=== PATIENT | female | born 1975 | race Caucasian/White ===

== ENCOUNTER 2016-10-21 13:14 | Emergency (ER) | payer BC ==
[~2016-10-21] VITALS: Ht 157.5 cm; Wt 97.5 kg
[2016-10-21 13:14] VITALS: BP 126/83
[~2016-10-21 13:14] MED LIST: PHEN-410 PO; ZOLP10TA2 PO
== END 2016-10-21 13:55 | disposition home or self-care (01) ==
LOC: ER 13:16
DX: L03.012 Cellulitis of left finger (principal); G40.909 Epilepsy, unspecified, not intractable, without status epilepticus
CPT/HCPCS: 99281; A4606; Z7610; Z7502

== ENCOUNTER 2017-05-09 15:06 | Emergency (ER) | payer BC ==
[~2017-05-09] VITALS: Ht 154.9 cm; Wt 99.8 kg
[2017-05-09 15:58] LABS: CALCIUM, SERUM 7.8 mg/dL (8.5-10.1); CARBON DIOXIDE 25 mmol/L (21-32); CHLORIDE 105 mmol/L (98-107); CREATININE 0.7 mg/dL (0.6-1.3); GLUCOSE 94 mg/dL (74-106); SODIUM SERUM 138 mmol/L (136-145); UREA NITROGEN, BLOOD 11 mg/dL (7-18)
[2017-05-09 16:02] LABS: INR 0.97 (0.87-1.13); PROTHROMBIN TIME 10.1 SECS (9.5-12.7)
[2017-05-09 16:04] LABS: ALANINE AMINOTRANSFERASE 19 U/L (12-78); ALBUMIN 2.9 g/dL (3.4-5.0); ALKALINE PHOSPHATASE 89 U/L (46-116); ASPARTATE AMINOTRANSFERASE 15 U/L (15-37); BILIRUBIN,TOTAL 0.1 mg/dL (0.2-1.0); TOTAL PROTEIN, SERUM 5.5 g/dL (6.4-8.2)
[2017-05-09 16:06] LABS: TROPONIN I < 0.017 ng/mL (0.00-0.056)
[2017-05-09 16:07] LABS: BASOPHILS % (AUTO) 0.4 % (0.0-2.0); EOSINOPHILS # (AUTO) 0.2 /CMM (0.0-0.7); EOSINOPHILS % (AUTO) 1.6 % (0.0-6.0); HEMATOCRIT 39 % (33-45); HEMOGLOBIN 12.7 g/dL (11.5-14.8); LYMPHOCYTES # (AUTO) 2.8 /CMM (0.8-4.8); LYMPHOCYTES % (AUTO) 23.4 % (20.0-44.0); MEAN CORPUSCULAR HEMOGLOBIN 28 PG (26.0-33.0); MEAN CORPUSCULAR HGB CONC 33 g/dl (31.0-36.0); MEAN CORPUSCULAR VOLUME 87 fL (82-100); MONOCYTES # (AUTO) 0.6 /CMM (0.1-1.30); MONOCYTES % (AUTO) 4.8 % (2.0-12.0); NEUTROPHILS # (AUTO) 8.5 /CMM (1.8-8.9); NEUTROPHILS % (AUTO) 69.8 % (43.0-81.0); PLATELET COUNT (AUTO) 295 /CMM (150-450); RDW COEFFICIENT OF VARIATION 13.7 (11.5-15.0); RED BLOOD CELL COUNT(AUTO) 4.51 MIL/uL (4.0-5.2); WHITE BLOOD COUNT (AUTO) 12.1 K/uL (4.3-11.0)
[2017-05-09 17:23] LABS: APPEARANCE,URINE Clear (CLEAR); BILIRUBIN,URINE Negative (NEGATIVE); BLOOD, URINE Negative Ery/uL (NEGATIVE); COLOR,URINE Yellow (YELLOW); KETONES,URINE Negative (NEGATIVE); LEUKOCYTE ESTERASE ,URINE Negative (NEGATIVE); NITRITE, URINE Negative (NEGATIVE); PROTEIN,URINE Negative (NEGATIVE); UGLUCOSE Negative (NEGATIVE); UROBILINOGEN,URINE 0.2 EU/dL (0.2)
[2017-05-09] MEDS ORDERED: METO25TA3 PO (18:32)
[2017-05-09] MEDS ORDERED: PHEN100C4 PO (18:32)
[2017-05-09] MEDS ORDERED: ASPI81TA2 PO (18:32)
[2017-05-09 18:55] VITALS: BP 132/66
== END 2017-05-09 18:56 | disposition home or self-care (01) ==
LOC: ER 15:07
DX: R07.89 Other chest pain (principal); I25.2 Old myocardial infarction; M32.9 Systemic lupus erythematosus, unspecified; M79.7 Fibromyalgia; Z88.8 Allergy status to other drugs, medicaments and biological substances
CPT/HCPCS: 36415; 71010; 71275; 80048; 80076; 80305; 81001; 84484; 84702; 85025; 85730; 93005; 96374; 96375; 99285; A4606; J1885; J2060; J2405; J7030; Q9967; Z7610; 81000-TC

== ENCOUNTER 2018-10-14 14:14 | Emergency (ER) | payer BC ==
[~2018-10-14] VITALS: Ht 152.4 cm; Wt 111.1 kg
[~2018-10-14 14:14] MED LIST changes: +ASPI-1169 PO; +METO25TA3 PO; -PHEN-410 PO; +PHEN100C4 PO; -ZOLP10TA2 PO
--- NOTE | 2018-10-14 14:20 | NUR ---
DORIS FROM HOME 42 YEAR OLD FEMALE FOR WITNESSED SEIZURE. -ORAL TRAUMA, BREATHING EVEN AND UNLABORED WITH NO DISTRESS NOTED. SKIN WARM TO TOUCH AND INTACT. AWAITING TO BE SEEN BY
[2018-10-14] MEDS ORDERED: LORAZEPAM 1 MG TABLET ONE (14:57)
[2018-10-14] MEDS ORDERED: LEVETIRACETAM (250 MG) 250 MG TABLET PO ONE (14:57)
[2018-10-14] MEDS: LEVETIRACETAM (250 MG) 250 MG TABLET PO ONE (14:59)
[2018-10-14] MEDS: LORAZEPAM 1 MG TABLET PO ONE (14:59)
[2018-10-14 15:19] LABS: BASOPHILS % (AUTO) 0.4 % (0.0-2.0); EOSINOPHILS % (AUTO) 0.5 % (0.0-6.0); HEMATOCRIT 41 % (33-45); HEMOGLOBIN 13.6 g/dL (11.5-14.8); LYMPHOCYTES # (AUTO) 1.6 /CMM (0.8-4.8); MEAN CORPUSCULAR HGB CONC 33 g/dl (31.0-36.0); MEAN CORPUSCULAR VOLUME 88 fL (82-100); MONOCYTES # (AUTO) 0.6 /CMM (0.1-1.30); NEUTROPHILS # (AUTO) 8.5 /CMM (1.8-8.9); NEUTROPHILS % (AUTO) 78.1 % (43.0-81.0); PLATELET COUNT (AUTO) 269 /CMM (150-450); RED BLOOD CELL COUNT(AUTO) 4.69 MIL/uL (4.0-5.2); WHITE BLOOD COUNT (AUTO) 10.9 K/uL (4.3-11.0)
[2018-10-14 16:05] LABS: CALCIUM, SERUM 8.1 mg/dL (8.5-10.1)
[2018-10-14] MEDS ORDERED: ACETAMINOPHEN ES 500 MG TABLET ONE (16:30)
[2018-10-14] MEDS: ACETAMINOPHEN ES 500 MG TABLET PO ONE (16:31)
[2018-10-14 17:29] VITALS: BP 127/72
--- NOTE | 2018-10-14 17:30 | NUR ---
Patient discharged to home in stable condition. Written and verbal after care instructions given. Patient verbalizes understanding of instruction.
--- NOTE | 2018-10-14 17:31 | NUR ---
IV removed. Catheter intact and site benign. Pressure and 4x4 applied to site. No bleeding noted.
== END 2018-10-14 17:31 | disposition home or self-care (01) ==
LOC: ER 14:21
DX: G40.909 Epilepsy, unspecified, not intractable, without status epilepticus (principal); I10 Essential (primary) hypertension; M79.7 Fibromyalgia; F19.10 Other psychoactive substance abuse, uncomplicated; F10.10 Alcohol abuse, uncomplicated; Y90.9 Presence of alcohol in blood, level not specified; Z91.14 Patient's other noncompliance with medication regimen; Z79.82 Long term (current) use of aspirin; Z88.8 Allergy status to other drugs, medicaments and biological substances
CPT/HCPCS: 36415; 80048; 84703; 85025; 99284; A4606

== ENCOUNTER 2021-02-26 19:10 | Emergency (ER) | payer BC ==
[~2021-02-26] VITALS: Ht 152.4 cm; Wt 107.5 kg
[2021-02-26 19:15] VITALS: BP 164/100
[2021-02-26] MEDS ORDERED: IBUPROFEN 600 MG TABLET PO ONE (20:00)
[2021-02-26] MEDS ORDERED: HYDROCODONE/APAP 5/325MG TABLET PO ONE (20:00)
[2021-02-26] MEDS ORDERED: HYDROCODONE/APAP 5/325MG TABLET ONE (20:05)
[2021-02-26] MEDS ORDERED: IBUPROFEN 600 MG TABLET ONE (20:05)
[2021-02-26] MEDS ORDERED: NAPR-1143 PO (20:12)
--- NOTE | 2021-02-26 21:04 | NUR ---
PT OK TO DISCHARGE PER YVES KURTZ. Patient discharged to home in stable condition. Written and verbal after care instructions given. Patient verbalizes understanding of instruction.Patient is awake and alert to self, day, and place.
== END 2021-02-26 21:05 | disposition home or self-care (01) ==
LOC: ER 19:13
DX: S93.492A Sprain of other ligament of left ankle, initial encounter (principal); I10 Essential (primary) hypertension; M79.7 Fibromyalgia; Z88.8 Allergy status to other drugs, medicaments and biological substances; Z79.82 Long term (current) use of aspirin; Z79.899 Other long term (current) drug therapy; X50.1XXA Overexertion from prolonged static or awkward postures, initial encounter; Y93.89 Activity, other specified; Y92.89 Other specified places as the place of occurrence of the external cause; Y99.8 Other external cause status
CPT/HCPCS: 73610-TC; 73630-TC

== ENCOUNTER 2022-04-30 19:02 | Emergency (ER) | payer BC ==
[~2022-04-30] VITALS: Ht 152.4 cm; Wt 107.5 kg
[~2022-04-30 19:02] MED LIST changes: +NAPR-1143 PO
[2022-04-30 19:15] VITALS: BP 133/104
[2022-04-30] MEDS ORDERED: TRIA15CR2 TP (19:29)
--- NOTE | 2022-04-30 19:30 | NUR ---
Patient discharged to home in stable condition. Written and verbal after care instructions given. Patient verbalizes understanding of instruction. pT ambulatory with a steady gait
== END 2022-04-30 19:30 | disposition home or self-care (01) ==
LOC: ER 19:09
DX: S30.860A Insect bite (nonvenomous) of lower back and pelvis, initial encounter (principal); S70.362A Insect bite (nonvenomous), left thigh, initial encounter; I10 Essential (primary) hypertension; M79.7 Fibromyalgia; Z88.8 Allergy status to other drugs, medicaments and biological substances; Z79.899 Other long term (current) drug therapy; W57.XXXA Bitten or stung by nonvenomous insect and other nonvenomous arthropods, initial encounter; Y93.89 Activity, other specified; Y92.89 Other specified places as the place of occurrence of the external cause; Y99.8 Other external cause status

== ENCOUNTER → 2022-05-21 | Emergency (ER) | payer BC ==
[~2022-05-21] VITALS: Ht 154.9 cm; Wt 97.5 kg
[~2022-05-21] MED LIST changes: +RAMIPRIL 1.25 MG CAPSULE PO ONE; +TRIA15CR2 TP
--- NOTE | 2022-05-21 04:00 | NUR ---
DORIS 89 FROM HOME FOR "WOKE UP AT 0200 WITH SOB". SATTING AT 98% ON RA. PLACED ON MONITOR AND ALL V/S WNL.
--- NOTE | 2022-05-21 04:24 | NUR ---
20G IV ESTABLISHED AT [facility]. BLOOD DRAWN AND SENT TO LAB
--- NOTE | 2022-05-21 04:30 | NUR ---
EMT AT BEDSIDE FOR EKG
[2022-05-21 04:33] LABS: BASOPHILS # (AUTO) 0.1 K/uL (0.0-0.2); BASOPHILS % (AUTO) 0.7 % (0.0-2.0); EOSINOPHILS % (AUTO) 3.6 % (0.0-6.0); HEMATOCRIT 42 % (33-45); HEMOGLOBIN 14.1 g/dL (11.5-14.8); LYMPHOCYTES # (AUTO) 2.6 K/uL (0.8-4.8); LYMPHOCYTES % (AUTO) 32.1 % (20.0-44.0); MEAN CORPUSCULAR HGB CONC 33 g/dl (31.0-36.0); MEAN CORPUSCULAR VOLUME 96 fL (82-100); MONOCYTES # (AUTO) 0.6 K/uL (0.1-1.30); MONOCYTES % (AUTO) 7.9 % (2.0-12.0); NEUTROPHILS # (AUTO) 4.5 K/uL (1.8-8.9); NEUTROPHILS % (AUTO) 55.7 % (43.0-81.0); PLATELET COUNT (AUTO) 287 K/uL (150-450); RED BLOOD CELL COUNT(AUTO) 4.42 MIL/uL (4.0-5.2); WHITE BLOOD COUNT (AUTO) 8.1 K/uL (4.3-11.0)
[2022-05-21 04:44] LABS: CALCIUM, SERUM 8.6 mg/dL (8.5-10.1); CARBON DIOXIDE 28 mmol/L (21-32); CHLORIDE 107 mmol/L (98-107); CREATININE 1.1 mg/dL (0.6-1.3); GLUCOSE 111 mg/dL (74-106); POTASSIUM 3.6 mmol/L (3.5-5.1); SODIUM SERUM 145 mmol/L (136-145); UREA NITROGEN, BLOOD 12 mg/dL (7-18)
[2022-05-21 04:57] LABS: ALANINE AMINOTRANSFERASE 30 U/L (12-78); ALBUMIN 3.8 g/dL (3.4-5.0); ALKALINE PHOSPHATASE 116 U/L (46-116); ASPARTATE AMINOTRANSFERASE 25 U/L (15-37); BILIRUBIN,DIRECT 0.1 mg/dL (0.0-0.2); BILIRUBIN,TOTAL 0.2 mg/dL (0.2-1.0); TOTAL PROTEIN, SERUM 7.9 g/dL (6.4-8.2)
--- NOTE | 2022-05-21 07:30 | NUR ---
HAND OFF FROM ALYSHA RN PT AWAKE AND ALERT dineses chest pain or SOB
--- NOTE | 2022-05-21 07:35 | NUR ---
here at bed side spook with pt about plan of care
--- NOTE | 2022-05-21 07:50 | NUR ---
D/C HL DONE AND pressure appled no bleeding on site
--- NOTE | 2022-05-21 07:52 | NUR ---
Patient discharged to home in stable condition. Written and verbal after care instructions given. Patient verbalizes understanding of instruction.
[2022-05-21 07:57] VITALS: BP 127/72
== END | disposition home or self-care (01) ==
LOC: ER 03:19
DX: R06.02 Shortness of breath (principal); I10 Essential (primary) hypertension; M79.7 Fibromyalgia; Z88.8 Allergy status to other drugs, medicaments and biological substances; Z79.899 Other long term (current) drug therapy
CPT/HCPCS: 36415; 71045-TC; 80048-TC; 80076-TC; 83880; 84484-TC; 85025-TC

== ENCOUNTER 2022-11-05 07:23 | Emergency (ER) | payer BC ==
[~2022-11-05] VITALS: Ht 157.5 cm; Wt 46.7 kg
[~2022-11-05 07:23] MED LIST changes: -RAMIPRIL 1.25 MG CAPSULE PO ONE
[2022-11-05 07:36] VITALS: BP 148/98
[2022-11-05] MEDS ORDERED: IBUPROFEN 600 MG TABLET PO ONE (08:00)
[2022-11-05] MEDS ORDERED: CEPHALEXIN MONOHYDRATE 500 MG CAPSULE PO ONE ×2 (08:00→08:07)
[2022-11-05] MEDS ORDERED: CEPH500C2 PO (08:04)
[2022-11-05] MEDS ORDERED: IBUPROFEN 600 MG TABLET ONE (08:07)
== END 2022-11-05 08:12 | disposition home or self-care (01) ==
LOC: ER 07:33
DX: L03.011 Cellulitis of right finger (principal); Z79.899 Other long term (current) drug therapy; Z79.82 Long term (current) use of aspirin; Z88.1 Allergy status to other antibiotic agents

== ENCOUNTER 2022-12-02 11:36 | Emergency (ER) | payer BC ==
[~2022-12-02] VITALS: Ht 157.5 cm; Wt 93.0 kg
[~2022-12-02 11:36] MED LIST changes: +CEPH500C2 PO
[2022-12-02 11:44] VITALS: BP 149/113
--- NOTE | 2022-12-02 11:44 | NUR ---
RIGHT HAND STARTING TO SWELL UP AGAIN, SEEN HER 3 WEEKS AGO FOR CELLULITIS
[2022-12-02] MEDS ORDERED: ACETAMINOPHEN 325 MG TABLET ONE (12:30)
[2022-12-02] MEDS: ACETAMINOPHEN 325 MG TABLET PO ONE (12:32)
[2022-12-02] MEDS ORDERED: CEPH500T PO (13:28)
== END 2022-12-02 13:34 | disposition home or self-care (01) ==
LOC: ER 11:42
DX: M79.644 Pain in right finger(s) (principal); I10 Essential (primary) hypertension; M79.7 Fibromyalgia; Z88.8 Allergy status to other drugs, medicaments and biological substances; Z79.899 Other long term (current) drug therapy
CPT/HCPCS: 73140-TC

== ENCOUNTER 2025-01-24 08:41 | Emergency (ER) | payer BC ==
[~2025-01-24] VITALS: Ht 152.4 cm; Wt 81.6 kg
[~2025-01-24 08:41] MED LIST changes: +CEPH500T PO
[2025-01-24 11:25] VITALS: BP 150/91; TEMP 98.3; O2SAT 96
== END 2025-01-24 11:25 | disposition home or self-care (01) ==
LOC: ER 08:47
DX: J21.9 Acute bronchiolitis, unspecified (principal); J06.9 Acute upper respiratory infection, unspecified; I10 Essential (primary) hypertension; M79.7 Fibromyalgia; G40.909 Epilepsy, unspecified, not intractable, without status epilepticus; Z79.82 Long term (current) use of aspirin; Z79.899 Other long term (current) drug therapy
CPT/HCPCS: 71045-TC

== ENCOUNTER 2025-05-18 05:55 | Emergency (ER) | payer BC ==
[~2025-05-18] VITALS: Ht 162.6 cm; Wt 70.8 kg
[~2025-05-18 05:55] MED LIST changes: +FAMO20TA8 PO; +IBUP-1490 PO; +ONDA4TAB11 PO
[2025-05-18 07:27] LABS: PLATELET COUNT (AUTO) 256 K/uL (150-450); RED BLOOD CELL COUNT(AUTO) 4.59 MIL/uL (4.0-5.2); RED CELL DISTRIBUTION WIDTH 13.3 % (11.5-15.0); WHITE BLOOD COUNT (AUTO) 7.1 K/uL (4.3-11.0)
[2025-05-18] MEDS: ACETAMINOPHEN 325 MG TABLET PO ONE (07:30)
[2025-05-18] MEDS: Magnesium 1GM/D5W 100ML PREMIX 100 ML IV ONE (07:30)
[2025-05-18] MEDS: IV LR 1000 ML 1,000 ML BAG IV ONE (07:30)
[2025-05-18 07:32] LABS: CALCIUM, SERUM 8.1 mg/dL (8.5-10.1); CREATININE 1.2 mg/dL (0.6-1.3); SODIUM SERUM 138.0 mmol/L (136-145); UREA NITROGEN, BLOOD 12.0 mg/dL (7-18)
[2025-05-18] MEDS ORDERED: ACETAMINOPHEN 325 MG TABLET ONE (07:37)
[2025-05-18] MEDS ORDERED: Magnesium 1GM/D5W 100ML PREMIX 100 ML IV ONE (07:37)
[2025-05-18] MEDS ORDERED: KETOROLAC TROMETHAMINE 15 MG/ML VIAL ONE (08:44)
[2025-05-18] MEDS: KETOROLAC TROMETHAMINE 15 MG/ML VIAL IV ONE (09:00)
[2025-05-18 10:01] VITALS: BP 141/79; TEMP 98; O2SAT 99
== END 2025-05-18 10:02 | disposition home or self-care (01) ==
LOC: ER 06:01
DX: S09.90XA Unspecified injury of head, initial encounter (principal); I10 Essential (primary) hypertension; G44.309 Post-traumatic headache, unspecified, not intractable; G40.909 Epilepsy, unspecified, not intractable, without status epilepticus; R10.2 Pelvic and perineal pain; M79.7 Fibromyalgia; Z79.82 Long term (current) use of aspirin; Z79.899 Other long term (current) drug therapy; Z88.8 Allergy status to other drugs, medicaments and biological substances; W19.XXXA Unspecified fall, initial encounter; Y93.89 Activity, other specified; Y92.89 Other specified places as the place of occurrence of the external cause; Y99.8 Other external cause status
CPT/HCPCS: 99285; 72125; 96365; 96375; 93005; 70450; 85025; 80048; 36415; 84702; J1885; J7120 ×2; J3475